=== PATIENT | female | born 1940 | race Caucasian/White ===

== ENCOUNTER 2017-11-15 12:59 | Inpatient (IN) | payer MEDICARE, OTHER ==
[~2017-11-15] VITALS: Ht 154.9 cm; Wt 57.3 kg
[~2017-11-15 12:59] MED LIST: AMLO2.5T2 PO; CLOP75TA33 PO; LEVO125T8 PO; SIMV40TA4 PO; VALS160T2 PO
[2017-11-15] MEDS ORDERED: ondansetron/PF 4mg/2ml inj IV ONE (13:20)
[2017-11-15] MEDS ORDERED: morphine 4 MG/ML inj SYRINge IV PRN ×3 (13:20→15:05)
[2017-11-15] MEDS: morphine 4 MG/ML inj SYRINge IV PRN ×3 (14:06→16:03)
[2017-11-15 14:11] LABS: BASOPHILS % (AUTO) 0.2 % (0-1); EOSINOPHILS # (AUTO) 0.1 X10'3 (0-0.9); EOSINOPHILS % (AUTO) 1.5 % (0-6); HEMATOCRIT 35.3 % (35.0-45.0); LYMPHOCYTES # (AUTO) 1.1 X10'3 (1.1-4.8); LYMPHOCYTES % (AUTO) 12.1 % (21-51); MEAN CORPUSCULAR HEMOGLOBIN 31.2 PG (27.0-31.0); MEAN CORPUSCULAR HGB CONC 34.1 % (33.0-36.5); MEAN CORPUSCULAR VOLUME 91.6 FL (78-98); MEAN PLATELET VOLUME 7.6 FL (7.4-10.4); MONOCYTES # (AUTO) 0.6 X10'3 (0-0.9); MONOCYTES % (AUTO) 6.3 % (2-12); NEUTROPHILS # (AUTO) 7.5 X10'3 (1.8-7.7); NEUTROPHILS % (AUTO) 79.9 % (42-75); PLATELET COUNT 246 X10'3 (140-440); RED BLOOD COUNT 3.85 X10'6 (4.20-5.60); RED CELL DISTRIBUTION WIDTH 13.7 % (11.5-14.5); WHITE BLOOD COUNT 9.4 X10'3 (4.5-11.0)
[2017-11-15 14:21] LABS: PARTIAL THROMBOPLASTIN TIME 24 SECONDS (22-32)
[2017-11-15 14:25] LABS: ALANINE AMINOTRANSFERASE 18 U/L (12-78); ALBUMIN 3.3 G/DL (3.4-5.0); ALKALINE PHOSPHATASE 59 IU/L (46-116); ANION GAP 2 (8-16); ASPARTATE AMINO TRANSFERASE 19 U/L (10-37); BILIRUBIN,TOTAL 0.3 MG/DL (0.1-1.0); BLOOD UREA NITROGEN 11 MG/DL (7-18); CALCIUM 8.7 MG/DL (8.5-10.1); CHLORIDE 104 MMOL/L (99-107); CREATININE 0.92 MG/DL (0.40-0.90); GLUCOSE 116 MG/DL (70-104); POTASSIUM 4.1 MMOL/L (3.5-5.1); SODIUM 136 MMOL/L (135-145); TOTAL CARBON DIOXIDE 29.7 MMOL/L (24-32); TOTAL PROTEIN 6.6 G/DL (6.4-8.2); eGFR 59 ML/MIN
[2017-11-15] MEDS ORDERED: mag hydrox/Alum hydrox/simeth 30ml oral suspension PO PRN (15:05)
[2017-11-15] MEDS ORDERED: magnesium hydroxide 30ml (MOM) UD suspension PO PRN (15:05)
[2017-11-15] MEDS ORDERED: ondansetron/PF 4mg/2ml inj IV PRN (15:05)
[2017-11-15] MEDS ORDERED: acetaminophen 325mg tablet PO PRN ×2 (15:05)
[2017-11-15] MEDS ORDERED: LOSA25TA96 PO (15:11)
[2017-11-15] MEDS ORDERED: AMLO2.5T2 PO (15:11)
[2017-11-15] MEDS ORDERED: SYN0.088T PO (15:11)
[2017-11-15 15:17] LABS: CLARITY,URINE SLIGHTLY CLOUDY (Clear); COLOR,URINE YELLOW (Yellow); GLUCOSE, URINE NEGATIVE (Neg); KETONES,URINE NEGATIVE (Neg); LEUKOCYTE ESTERASE ,URINE NEGATIVE (Neg); NITRITES, URINE NEGATIVE (Neg); OCCULT BLOOD,URINE NEGATIVE (Neg); PROTEIN,URINE NEGATIVE (Neg); UROBILINOGEN,URINE 0.2 E.U/dL (0.2-1.0)
[2017-11-15 15:20] LABS: UA COLLECTION TYPE OTHER
[2017-11-15 15:28] LABS: BACTERIA,URINE NONE SEEN /HPF (Neg); HYALINE CASTS 0-3 /LPF (NEGATIVE); MUCUS STRANDS FEW /LPF (Neg); RBC,URINE 0-2 /HPF (0-2); SQUAMOUS EPITHELIAL CELL,UR FEW /LPF (FEW); WBC,URINE 0-4 /HPF (0-4)
[2017-11-15 16:36] VITALS: BP 146/51
[2017-11-15] MEDS ORDERED: morphine 10mg/ml inj. IV ONE (17:30)
[2017-11-15] MEDS: normal saline 1000ml 1,000 ML IV SCH (17:48)
[2017-11-15 18:00] VITALS: BP 133/55
[2017-11-15] MEDS: docusate sod 100mg capsule PO SCH (20:49)
[2017-11-15 22:00] VITALS: BP 148/51
[2017-11-16] VITALS (17 sets, daily range): BP systolic 115–170; BP diastolic 37–64
[2017-11-16] MEDS: oxyCODONE IR 5mg (immed. release) tablet PO PRN ×2 (00:18→16:07)
[2017-11-16] MEDS: normal saline 1000ml 1,000 ML IV SCH ×3 (02:20→23:35)
[2017-11-16 05:43] LABS: BASOPHILS % (AUTO) 0.4 % (0-1); EOSINOPHILS # (AUTO) 0.1 X10'3 (0-0.9); EOSINOPHILS % (AUTO) 1.7 % (0-6); HEMATOCRIT 35.3 % (35.0-45.0); HEMOGLOBIN 11.9 g/dl (12.0-16.0); LYMPHOCYTES # (AUTO) 1.1 X10'3 (1.1-4.8); LYMPHOCYTES % (AUTO) 13.1 % (21-51); MEAN CORPUSCULAR HEMOGLOBIN 30.9 PG (27.0-31.0); MEAN CORPUSCULAR HGB CONC 33.8 % (33.0-36.5); MEAN CORPUSCULAR VOLUME 91.4 FL (78-98); MEAN PLATELET VOLUME 8.1 FL (7.4-10.4); MONOCYTES # (AUTO) 0.5 X10'3 (0-0.9); MONOCYTES % (AUTO) 5.7 % (2-12); NEUTROPHILS # (AUTO) 6.7 X10'3 (1.8-7.7); NEUTROPHILS % (AUTO) 79.1 % (42-75); PLATELET COUNT 227 X10'3 (140-440); RED BLOOD COUNT 3.87 X10'6 (4.20-5.60); RED CELL DISTRIBUTION WIDTH 13.4 % (11.5-14.5); WHITE BLOOD COUNT 8.4 X10'3 (4.5-11.0)
[2017-11-16 06:09] LABS: ALBUMIN 3.1 G/DL (3.4-5.0); ANION GAP 6 (8-16); BLOOD UREA NITROGEN 9 MG/DL (7-18); CALCIUM 8.8 MG/DL (8.5-10.1); CHLORIDE 101 MMOL/L (99-107); CREATININE 0.75 MG/DL (0.40-0.90); GLUCOSE 99 MG/DL (70-104); POTASSIUM 4.9 MMOL/L (3.5-5.1); SODIUM 133 MMOL/L (135-145); TOTAL CARBON DIOXIDE 25.8 MMOL/L (24-32); eGFR 75 ML/MIN
[2017-11-16] MEDS ORDERED: midazolam 2 mg/2 ml injection ONE (07:40)
[2017-11-16] MEDS ORDERED: fentaNYL/PF 50MCG/1 ML 2ML syringe ONE (07:40)
[2017-11-16] MEDS ORDERED: propofol inj 20 ML IV ONE (07:41)
[2017-11-16] MEDS ORDERED: LIDOcaine 2% (20mg/ml) 5ml vial ONE (07:41)
[2017-11-16] MEDS ORDERED: ringers solution, lacted 1,000 ML IV SCH (07:43)
[2017-11-16] MEDS ORDERED: fentaNYL/PF 50MCG/1 ML 2ML syringe IV PRN ×2 (07:45)
[2017-11-16] MEDS ORDERED: morphine 4 MG/ML inj SYRINge IV PRN ×2 (07:45)
[2017-11-16] MEDS ORDERED: hydrALAZINE 20mg/ml inj. IV PRN (07:45)
[2017-11-16] MEDS ORDERED: labetalol 20mg/4ml (5mg/ml) syringe IV PRN (07:45)
[2017-11-16] MEDS ORDERED: ondansetron/PF 4mg/2ml inj IV PRN ×2 (07:45→09:05)
[2017-11-16] MEDS ORDERED: sevoflurane 250ml liquid IH ONE (07:57)
[2017-11-16] MEDS: clopidogrel 75mg tablet PO SCH (08:00)
[2017-11-16] MEDS: clindamycin 600mg/D5W 50ml 50 ML IV SCH ×3 (08:00→20:27)
[2017-11-16] MEDS: docusate sod 100mg capsule PO SCH ×2 (08:00→20:27)
[2017-11-16] MEDS ORDERED: dexamethasone sod phosphate 4mg/ml inj. ONE (08:12)
[2017-11-16] MEDS ORDERED: ondansetron/PF 4mg/2ml inj ONE (08:14)
[2017-11-16] MEDS ORDERED: clindamycin phosphate 150mg/ml inj. ONE (08:23)
[2017-11-16] MEDS ORDERED: morphine 10mg/ml inj. ONE (08:46)
[2017-11-16] MEDS ORDERED: magnesium hydroxide 30ml (MOM) UD suspension PO PRN (09:05)
[2017-11-16] MEDS ORDERED: acetaminophen 325mg tablet PO PRN (09:05)
[2017-11-16] MEDS ORDERED: bisacodyl 10mg suppository rectal RC PRN (09:05)
[2017-11-16] MEDS ORDERED: diphenhydrAMINE 25mg capsule PO PRN ×2 (09:05)
[2017-11-16] MEDS ORDERED: MESSAGE TO NURSING PO NR (10:00)
[2017-11-16] MEDS: sennosides 8.6mg tablet PO SCH (20:28)
[2017-11-17] MEDS: normal saline 1000ml 1,000 ML IV SCH ×3 (00:56→19:19)
[2017-11-17 02:00] VITALS: BP 159/50
[2017-11-17] MEDS: clindamycin 600mg/D5W 50ml 50 ML IV SCH ×2 (02:46→07:24)
[2017-11-17 06:00] VITALS: BP 130/60
[2017-11-17 06:33] LABS: BASOPHILS % (AUTO) 0.2 % (0-1); EOSINOPHILS # (AUTO) 0.1 X10'3 (0-0.9); EOSINOPHILS % (AUTO) 0.8 % (0-6); HEMATOCRIT 28.3 % (35.0-45.0); HEMOGLOBIN 9.7 g/dl (12.0-16.0); LYMPHOCYTES # (AUTO) 0.9 X10'3 (1.1-4.8); LYMPHOCYTES % (AUTO) 9.8 % (21-51); MEAN CORPUSCULAR HEMOGLOBIN 31.5 PG (27.0-31.0); MEAN CORPUSCULAR HGB CONC 34.2 % (33.0-36.5); MEAN CORPUSCULAR VOLUME 91.9 FL (78-98); MEAN PLATELET VOLUME 8.1 FL (7.4-10.4); MONOCYTES # (AUTO) 0.7 X10'3 (0-0.9); MONOCYTES % (AUTO) 7.6 % (2-12); NEUTROPHILS # (AUTO) 7.3 X10'3 (1.8-7.7); NEUTROPHILS % (AUTO) 81.6 % (42-75); PLATELET COUNT 174 X10'3 (140-440); RED BLOOD COUNT 3.08 X10'6 (4.20-5.60); RED CELL DISTRIBUTION WIDTH 13.6 % (11.5-14.5); WHITE BLOOD COUNT 8.9 X10'3 (4.5-11.0)
[2017-11-17 06:55] LABS: ALBUMIN 2.6 G/DL (3.4-5.0); BLOOD UREA NITROGEN 12 MG/DL (7-18); CALCIUM 8.2 MG/DL (8.5-10.1); CREATININE 0.75 MG/DL (0.40-0.90); GLUCOSE 122 MG/DL (70-104); TOTAL CARBON DIOXIDE 27.9 MMOL/L (24-32); eGFR 75 ML/MIN
[2017-11-17 06:59] LABS: ANION GAP 3 (8-16); CHLORIDE 99 MMOL/L (99-107); POTASSIUM 4.2 MMOL/L (3.5-5.1); SODIUM 130 MMOL/L (135-145)
[2017-11-17] MEDS: docusate sod 100mg capsule PO SCH ×2 (07:23→19:18)
[2017-11-17] MEDS: levoTHYROXINE 100mcg tablet PO SCH (07:23)
[2017-11-17] MEDS: losartan 25mg tablet PO SCH (07:24)
[2017-11-17] MEDS: amLODIPine 5mg tablet PO SCH (07:24)
[2017-11-17] MEDS: enoxaparin 40mg/0.4ml syringe SUBCUT SCH (07:25)
[2017-11-17] MEDS: oxyCODONE IR 5mg (immed. release) tablet PO PRN ×3 (09:00→21:36)
[2017-11-17 10:00] VITALS: BP 130/46
[2017-11-17 13:57] VITALS: BP 127/43
[2017-11-17 18:15] VITALS: BP 136/65
[2017-11-17] MEDS: sennosides 8.6mg tablet PO SCH (19:18)
[2017-11-17 22:00] VITALS: BP 139/47
[2017-11-18] MEDS: oxyCODONE IR 5mg (immed. release) tablet PO PRN ×2 (05:21→13:14)
[2017-11-18] MEDS: normal saline 1000ml 1,000 ML IV SCH (05:52)
[2017-11-18 06:00] VITALS: BP 171/59
[2017-11-18 06:46] LABS: BASOPHILS % (AUTO) 0.4 % (0-1); EOSINOPHILS # (AUTO) 0.4 X10'3 (0-0.9); EOSINOPHILS % (AUTO) 4.7 % (0-6); HEMATOCRIT 29.4 % (35.0-45.0); HEMOGLOBIN 10.1 g/dl (12.0-16.0); LYMPHOCYTES # (AUTO) 1.4 X10'3 (1.1-4.8); LYMPHOCYTES % (AUTO) 17.2 % (21-51); MEAN CORPUSCULAR HEMOGLOBIN 31.2 PG (27.0-31.0); MEAN CORPUSCULAR HGB CONC 34.2 % (33.0-36.5); MEAN CORPUSCULAR VOLUME 91.2 FL (78-98); MEAN PLATELET VOLUME 8.8 FL (7.4-10.4); MONOCYTES # (AUTO) 0.7 X10'3 (0-0.9); MONOCYTES % (AUTO) 9.2 % (2-12); NEUTROPHILS # (AUTO) 5.6 X10'3 (1.8-7.7); NEUTROPHILS % (AUTO) 68.5 % (42-75); PLATELET COUNT 186 X10'3 (140-440); RED BLOOD COUNT 3.22 X10'6 (4.20-5.60); RED CELL DISTRIBUTION WIDTH 13.2 % (11.5-14.5); WHITE BLOOD COUNT 8.2 X10'3 (4.5-11.0)
[2017-11-18 06:54] LABS: ALBUMIN 2.7 G/DL (3.4-5.0); ANION GAP 6 (8-16); BLOOD UREA NITROGEN 12 MG/DL (7-18); BUN/CREATININE RATIO 12.9 (6.6-38.0); CALCIUM 8.3 MG/DL (8.5-10.1); CHLORIDE 101 MMOL/L (99-107); CREATININE 0.93 MG/DL (0.40-0.90); GLUCOSE 82 MG/DL (70-104); POTASSIUM 3.9 MMOL/L (3.5-5.1); SODIUM 134 MMOL/L (135-145); TOTAL CARBON DIOXIDE 26.8 MMOL/L (24-32); eGFR 59 ML/MIN
[2017-11-18] MEDS: losartan 25mg tablet PO SCH (08:20)
[2017-11-18] MEDS: amLODIPine 5mg tablet PO SCH (08:20)
[2017-11-18] MEDS: docusate sod 100mg capsule PO SCH (08:20)
[2017-11-18] MEDS: clopidogrel 75mg tablet PO SCH (08:20)
[2017-11-18] MEDS: levoTHYROXINE 100mcg tablet PO SCH (08:20)
[2017-11-18] MEDS: enoxaparin 40mg/0.4ml syringe SUBCUT SCH (08:22)
[2017-11-18] MEDS ORDERED: oxyCODONE IR 5mg (immed. release) tablet PO PRN (08:45)
[2017-11-18 09:57] VITALS: BP 136/48
== END 2017-11-18 13:50 | DRG 481 ==
LOC: ER 12:59 → ORTHO 4S 15:01 → UNDOADMIN 15:43
PROVIDERS: ADMIT Internal Medicine; ATTEND Internal Medicine
PROC: 0QS734Z Reposition Left Upper Femur with Internal Fixation Device, Percutaneous Approach (ICD-10-PCS; principal; 2017-11-16 08:02)
DX: S72.002A Fracture of unspecified part of neck of left femur, initial encounter for closed fracture (principal); D62 Acute posthemorrhagic anemia; E03.9 Hypothyroidism, unspecified; E78.00 Pure hypercholesterolemia, unspecified; F17.210 Nicotine dependence, cigarettes, uncomplicated; S40.012A Contusion of left shoulder, initial encounter; I10 Essential (primary) hypertension; S40.212A Abrasion of left shoulder, initial encounter; Z88.5 Allergy status to narcotic agent; Z88.0 Allergy status to penicillin; Z88.8 Allergy status to other drugs, medicaments and biological substances; Z79.02 Long term (current) use of antithrombotics/antiplatelets; Z79.899 Other long term (current) drug therapy; Z79.01 Long term (current) use of anticoagulants; Z86.73 Personal history of transient ischemic attack (TIA), and cerebral infarction without residual deficits; Y93.89 Activity, other specified; Y92.89 Other specified places as the place of occurrence of the external cause; Y99.8 Other external cause status; W55.11XA Bitten by horse, initial encounter; W55.12XA Struck by horse, initial encounter
CPT/HCPCS: 36415; 71045; 73030; 73502; 76000; 80048; 80053; 81001; 84443; 85025; 85610; 85730; 86885; 86900; 86901; 87070; 96374; 97110; 97116; 97162; 97530; 99285; A4315; A6213; A6222; A6251; A6257; A6449; A7000; C1713; J1100; J1650; J2001; J2250; J2270; J2405; J2704; J3010; J3490; J7030; J7120; Q0163